=== PATIENT | female | born 1975 | race Caucasian/White ===

== ENCOUNTER 2017-12-30 19:27 | Emergency (ER) | payer OTHER ==
[~2017-12-30] VITALS: Ht 162.6 cm; Wt 81.6 kg
[~2017-12-30 19:27] MED LIST: ALLO100T21 PO; COZ50 PO; EPIN1KIT MR; METF500T4 PO; RANI300T35 PO; SIMV20TA6 PO; SYN.075 PO
[2017-12-30 19:48] VITALS: BP 128/65
--- NOTE | 2017-12-30 19:54 | NUR ---
to lobby, a/w rory puga noted
--- NOTE | 2017-12-30 21:45 | NUR ---
PATIENT AMBULATED TO ER BED 11.
--- NOTE | 2017-12-30 21:47 | NUR ---
PATIENT IS A 42 Y/O FEMALE WHO PRESENTS TO THE ED C/O ABD PAIN. PT STATES, "I HAVE BEEN GOING TO URGENT CARE AND I FEEL LIKE THE MEDICATION ISN'T WORKING." PT REPORTS 7/10 SHARP GENITAL PAIN THAT RADIATES TO THE BACK. PT DENIES CP, SOB REPORTS NAUSEA/VOMITING/DIARRHEA. PT AAOX4, RR EVEN/UNLABORED. PT REPOSITIONED FOR COMFORT, BED IN LOWEST POSITION. ER MD DR. STACY NOTIFIED. WILL CONTINUE TO MONITOR.
[2017-12-30] MEDS: KETOROLAC 60 MG/2 ML VIAL IM ONE (22:30)
[2017-12-30 22:43] VITALS: BP 119/72
--- NOTE | 2017-12-30 22:43 | NUR ---
Patient discharged with v/s stable. Written and verbal after care instructions given and explained. Patient alert, oriented and verbalized understanding of instructions. Ambulatory with steady gait. All questions addressed prior to discharge. ID band removed. Patient advised to follow up with PMD. Rx of NORCO 5MG-325MG given. Patient educated on indication of medication including possible reaction and side effects. Opportunity to ask questions provided and answered.
== END 2017-12-30 22:43 | disposition home or self-care (01) ==
LOC: MED 19:27
DX: R30.0 Dysuria (principal); R10.30 Lower abdominal pain, unspecified; E11.9 Type 2 diabetes mellitus without complications; I10 Essential (primary) hypertension; E03.9 Hypothyroidism, unspecified; Z79.899 Other long term (current) drug therapy; Z88.8 Allergy status to other drugs, medicaments and biological substances; Z87.442 Personal history of urinary calculi; Z91.018 Allergy to other foods
CPT/HCPCS: 81002; 81025; 96372; 99283; J1885

== ENCOUNTER 2019-03-10 04:20 | Emergency (ER) | payer OTHER ==
[~2019-03-10] VITALS: Ht 162.6 cm; Wt 131.5 kg
[~2019-03-10 04:20] MED LIST changes: +METF-988 PO; -METF500T4 PO
[2019-03-10 04:25] VITALS: BP 149/90
--- NOTE | 2019-03-10 04:25 | NUR ---
TO BED # 11 AMBULATORY , REPORT GIVEN TO AALIYAH LIMON
--- NOTE | 2019-03-10 04:43 | NUR ---
BIB SELF WITH C/O SHARP TO DULL RIGHT SIDE/FLANK PAIN. STATES PAIN WAS SO SEVERE THAT SHE THREW UP X1 BEFORE COMING IN. STATES SHE HAS HAD KIDNEY STONES IN THE PAST BUT THIS PAIN IS DIFFERENT AND WAS ACCOMPANIED BY BLOATING WHICH SHE HAS NOT HAD WITH PREVIOUS KIDNEY STONES. STATES SHE HAS CHRONIC UTI'S AND IS CURRENTLY TAKING A UTI OTC PAIN RELIEVER BUT DOES NOT KNOW IF SHE HAS A CURRENT UTI.
--- NOTE | 2019-03-10 04:57 | NUR ---
ERMD AT BEDSIDE
[2019-03-10] MEDS ORDERED: MORPHINE SULFATE 4 MG/ML SYR IVP ONE (05:00)
[2019-03-10] MEDS ORDERED: ONDANSETRON 4 MG/2 ML VIAL IVP ONE (05:00)
[2019-03-10] MEDS ORDERED: NACL 0.9% 1,000 ML IV ONE (05:00)
[2019-03-10 05:31] LABS: ALBUMIN 3.4 g/dL (3.4-5.0); ANION GAP 12.5 (8-16); CARBON DIOXIDE 26.4 mmol/L (21-32); POTASSIUM 3.9 mmol/L (3.5-5.1); TOTAL BILIRUBIN 0.6 mg/dL (0.0-1.0)
--- NOTE | 2019-03-10 05:51 | NUR ---
PT TAKEN TO CT.
[2019-03-10 05:54] LABS: BILIRUBIN,URINE NEGATIVE (NEGATIVE); BLOOD, URINE 2+ (NEGATIVE); COLOR,URINE YELLOW (YELLOW); LEUKOCYTE ESTERASE ,URINE 1+ (NEGATIVE); NITRITE, URINE NEGATIVE (NEGATIVE); UGLUCOSE 3+ (NEGATIVE)
--- NOTE | 2019-03-10 06:05 | NUR ---
PT RETURNED FROM CT.
[2019-03-10 06:09] LABS: APPEARANCE,URINE HAZY (CLEAR); RBC,URINE 0 /HPF (0-5)
[2019-03-10 06:10] LABS: WBC,URINE 80-100 /HPF (0-5); YEAST,URINE Rare /HPF (None Seen)
[2019-03-10] MEDS ORDERED: KETOROLAC 30 MG/ML VIAL IVP ONE (06:30)
[2019-03-10 06:44] LABS: BASOPHILS % (AUTO) 0.2 % (0.0-2.0); EOSINOPHILS # (AUTO) 0.1 K/uL (0-0.4); EOSINOPHILS % (AUTO) 0.4 % (0.0-4.0); HEMATOCRIT 38.6 % (36-48); HEMOGLOBIN 12.9 g/dL (12.0-16.0); LYMPHOCYTES # (AUTO) 1.2 K/uL (2.5-16.5); LYMPHOCYTES % (AUTO) 8.5 % (20.5-51.1); MEAN CORPUSCULAR HEMOGLOBIN 30 pg (27-31); MEAN CORPUSCULAR HGB CONC 34 g/dL (33-37); MEAN CORPUSCULAR VOLUME 88.6 fL (80-94); MONOCYTES # (AUTO) 0.6 K/uL (0.8-1.0); MONOCYTES % (AUTO) 4.2 % (1.7-9.3); NEUTROPHILS # (AUTO) 11.8 K/uL (1.8-7.7); NEUTROPHILS % (AUTO) 86.7 % (42.2-75.2); PLATELET COUNT (AUTO) 257 K/uL (140-450); RED BLOOD CELL COUNT(AUTO) 4.35 MIL/uL (4.20-5.40); RED CELL DISTRIBUTION WIDTH 12.8 % (11.6-13.7); WHITE BLOOD COUNT (AUTO) 13.6 K/uL (4.8-10.8)
[2019-03-10] MEDS ORDERED: cefTRIAXone 1,000 MG VIAL ONE (06:52)
--- NOTE | 2019-03-10 07:04 | NUR ---
REPORT GIVEN TO ASHLY TORRES.
--- NOTE | 2019-03-10 07:05 | NUR ---
RECEIVED PT FROM PM SHIFT. PT STATED PAIN RELIEVED. ABX IS STILLL RUNNING,SITE INTACT AND PATENT. INTRODUCED MYSELF TO PT, PT VITALS STABLE.
[2019-03-10 07:56] VITALS: BP 128/76
--- NOTE | 2019-03-10 07:56 | NUR ---
Patient discharged with v/s stable. Written and verbal after care instructions given and explained. Patient alert, oriented and verbalized understanding of instructions. Ambulatory with steady gait. All questions addressed prior to discharge. ID band removed. Patient advised to follow up with PMD. Rx of KEFLEX, ZOFRAN, NAPROSYN AND NORCO given. Patient educated on indication of medication including possible reaction and side effects. Opportunity to ask questions provided and answered.
== END 2019-03-10 07:56 | disposition home or self-care (01) ==
LOC: MED 04:20
DX: N20.1 Calculus of ureter (principal); R14.0 Abdominal distension (gaseous); E11.9 Type 2 diabetes mellitus without complications; I10 Essential (primary) hypertension; E03.9 Hypothyroidism, unspecified; Z79.84 Long term (current) use of oral hypoglycemic drugs; Z79.899 Other long term (current) drug therapy; Z88.8 Allergy status to other drugs, medicaments and biological substances
CPT/HCPCS: 36415; 74176; 80053; 81001; 81025; 83690; 85025; 87086; 96365; 96375; 99284; J0696; J1885; J2270; J2405; J7030

== ENCOUNTER 2019-03-18 16:08 | Emergency (ER) | payer OTHER ==
[~2019-03-18] VITALS: Ht 162.6 cm; Wt 92.7 kg
[2019-03-18 16:13] VITALS: BP 141/108
--- NOTE | 2019-03-18 16:19 | NUR ---
PT AMBULATED TO LOBBY AT THIS TIME.
--- NOTE | 2019-03-18 16:38 | NUR ---
PT TO ER BED 2
--- NOTE | 2019-03-18 16:40 | NUR ---
PT C/O KIDNEY STONE. SHE STATES SHE WAS DIAGNOSED WITH KIDNEY STONE ON 03/03 HERE. PT REPORTS PAIN IS UNBEARBLE. CONSTANT SHARP BURNING PAIN IN LT FLANK, SUPRABUPIC, AND VAGNINA THAT INCREASES WITH URINATION AND SITTING DOWN. MEDHX:HTN, DM, HYPOTHYROID RX:METFORMIN, INSULIN, . DENIES N/V/D; SKIN IS PINK/WARM/DRY; AAOX4 WITH EVEN AND STEADY GAIT; LUNGS CLEAR BL; HR EVEN AND REGULAR; PT DENIES ANY FEVER, CP, SOB, OR COUGH AT THIS TIME; PATIENT STATES PAIN OF 10/10 AT THIS TIME; VSS; PATIENT POSITIONED FOR COMFORT; HOB ELEVATED; BEDRAILS UP X2; BED DOWN. ER MD MADE AWARE OF PT STATUS.
[2019-03-18 17:17] LABS: BASOPHILS # (AUTO) 0.1 K/uL (0.00-0.22); BASOPHILS % (AUTO) 0.8 % (0.0-2.0); EOSINOPHILS # (AUTO) 0.1 K/uL (0-0.4); EOSINOPHILS % (AUTO) 1.1 % (0.0-4.0); HEMATOCRIT 36.9 % (36-48); HEMOGLOBIN 12.5 g/dL (12.0-16.0); LYMPHOCYTES # (AUTO) 1.3 K/uL (2.5-16.5); LYMPHOCYTES % (AUTO) 18.3 % (20.5-51.1); MEAN CORPUSCULAR HEMOGLOBIN 30 pg (27-31); MEAN CORPUSCULAR HGB CONC 34 g/dL (33-37); MEAN CORPUSCULAR VOLUME 87.8 fL (80-94); MONOCYTES # (AUTO) 0.4 K/uL (0.8-1.0); MONOCYTES % (AUTO) 5.3 % (1.7-9.3); NEUTROPHILS # (AUTO) 5.2 K/uL (1.8-7.7); NEUTROPHILS % (AUTO) 74.5 % (42.2-75.2); PLATELET COUNT (AUTO) 401 K/uL (140-450); RED CELL DISTRIBUTION WIDTH 12.8 % (11.6-13.7)
[2019-03-18 17:25] LABS: ANION GAP 11.2 (8-16); CARBON DIOXIDE 28.1 mmol/L (21-32); POTASSIUM 4.3 mmol/L (3.5-5.1)
[2019-03-18 17:30] LABS: ALBUMIN 3.2 g/dL (3.4-5.0); TOTAL BILIRUBIN 0.5 mg/dL (0.0-1.0)
[2019-03-18 17:50] LABS: APPEARANCE,URINE CLOUDY (CLEAR); BILIRUBIN,URINE 1+ (NEGATIVE); BLOOD, URINE 3+ (NEGATIVE); COLOR,URINE RED (YELLOW); LEUKOCYTE ESTERASE ,URINE 2+ (NEGATIVE); NITRITE, URINE NEGATIVE (NEGATIVE); PH,URINE 6.5 (5.0-9.0); UGLUCOSE 3+ (NEGATIVE)
[2019-03-18 18:09] LABS: RBC,URINE TOO NUMEROUS TO COUN /HPF (0-5); WBC,URINE 16-25 (MOD) /HPF (0-5)
[2019-03-18 19:15] VITALS: BP 138/89
--- NOTE | 2019-03-18 19:17 | NUR ---
Patient discharged with v/s stable. Written and verbal after care instructions given and explained. Patient alert, oriented and verbalized understanding of instructions. Ambulatory with to car. All questions addressed prior to discharge. ID band removed. Patient advised to follow up with PMD. Rx of percocet, pyridium, flomax and colace, ciprofloxacin given. Patient educated on indication of medication including possible reaction and side effects. Opportunity to ask questions provided and answered.
== END 2019-03-18 19:17 | disposition home or self-care (01) ==
LOC: MED 16:08
DX: N20.0 Calculus of kidney (principal); R31.9 Hematuria, unspecified; E11.9 Type 2 diabetes mellitus without complications; I10 Essential (primary) hypertension; E03.9 Hypothyroidism, unspecified; Z88.8 Allergy status to other drugs, medicaments and biological substances; Z79.84 Long term (current) use of oral hypoglycemic drugs; Z79.899 Other long term (current) drug therapy
CPT/HCPCS: 36415; 80053; 81001; 81025; 85025; 87086; 99284

== ENCOUNTER 2019-04-08 14:08 | Emergency (ER) | payer OTHER ==
[~2019-04-08] VITALS: Ht 160 cm; Wt 91.6 kg
[2019-04-08 14:13] VITALS: BP 142/96
--- NOTE | 2019-04-08 14:19 | NUR ---
PT AMBULATED TO BED 6
[2019-04-08] MEDS ORDERED: LIDOCAINE VISCOUS 2% 20 ML UDC PO ONE (15:20)
[2019-04-08 15:27] LABS: APPEARANCE,URINE HAZY (CLEAR); BILIRUBIN,URINE NEGATIVE (NEGATIVE); BLOOD, URINE 3+ (NEGATIVE); COLOR,URINE YELLOW (YELLOW); LEUKOCYTE ESTERASE ,URINE 2+ (NEGATIVE); NITRITE, URINE NEGATIVE (NEGATIVE); UGLUCOSE NEGATIVE (NEGATIVE)
[2019-04-08 15:35] LABS: BARBITURATE, URINE NEG. ng/ml (NEG <=200); BENZODIAZEPINE, URINE NEG. ng/mL (NEG <=200); CANNABINOID, URINE NEG. ng/mL (NEG <=50); COCAINE, URINE NEG. ng/mL (NEG <=300); OPIATE, URINE NEG. ng/mL (NEG <=2000); PHENCYCLIDINE SCREEN,URINE NEG. ng/mL (NEG <=25)
[2019-04-08 15:38] LABS: RBC,URINE TOO NUMEROUS TO COUN /HPF (0-5); WBC,URINE TOO MANY TO COUNT /HPF (0-5)
--- NOTE | 2019-04-08 15:59 | NUR ---
ASSISTED DR. CLARK FEMALE MDS MANAGER FOR PELVIC EXAM
[2019-04-08] MEDS ORDERED: hydrOXYzine HCL 25 MG TAB PO ONE (16:00)
[2019-04-08] MEDS ORDERED: FLUCONAZOLE 100 MG TAB PO ONE (16:00)
[2019-04-08] MEDS ORDERED: LORazepam 1 MG TAB PO ONE (16:00)
--- NOTE | 2019-04-08 16:01 | NUR ---
PT REPORTS VAGINAL PAIN X1 MONTH. PT REPORTS BURNING PAIN AFTER SHE URINATES OR SITS AT 10/10. + NAUSEA AND CHILLS. - VOMIT, DIARRHEA. MEDHX:KIDNEY STONES, DM, HYPOTHYROID, HLD, HTN, ENDOMETRIOSIS, CARPAL TUNNEL, PLANTAR FASCIATIS
[2019-04-08] MEDS ORDERED: LEVOFLOXACIN 500 MG TAB PO ONE (16:05)
[2019-04-08] MEDS ORDERED: FLUCONAZOLE 100 MG TAB PO SCH (16:15)
[2019-04-08 17:49] VITALS: BP 135/78
--- NOTE | 2019-04-08 17:49 | NUR ---
Patient discharged with v/s stable. Written and verbal after care instructions given and explained. Patient alert, oriented and verbalized understanding of instructions. Ambulatory with steady gait. All questions addressed prior to discharge. ID band removed. Patient advised to follow up with PMD. Rx of MONISTAT AND COLACE AND LEVAQUIN, ATARAX AND FIORICET AND LIDOCAINE VISCOUS given. Patient educated on indication of medication including possible reaction and side effects. Opportunity to ask questions provided and answered.
== END 2019-04-08 17:49 | disposition home or self-care (01) ==
LOC: MED 14:08
DX: B37.3 Candidiasis of vulva and vagina (principal); N30.90 Cystitis, unspecified without hematuria; E11.9 Type 2 diabetes mellitus without complications; I10 Essential (primary) hypertension; E03.9 Hypothyroidism, unspecified; E78.5 Hyperlipidemia, unspecified; Z79.84 Long term (current) use of oral hypoglycemic drugs; Z91.040 Latex allergy status; Z88.8 Allergy status to other drugs, medicaments and biological substances; Z87.442 Personal history of urinary calculi
CPT/HCPCS: 80305; 81001; 81025; 87086; 99284

== ENCOUNTER 2019-04-14 19:58 | Emergency (ER) | payer OTHER ==
[~2019-04-14] VITALS: Ht 162.6 cm; Wt 91.6 kg
[2019-04-14 20:05] VITALS: BP 155/90
--- NOTE | 2019-04-14 20:05 | NUR ---
PT TAKEN TO BED 2
--- NOTE | 2019-04-14 20:07 | NUR ---
PATIENT PRESENTS TO ED WITH C/O URINARY BURNING FOR APPROX 1 MONTH. PT DENIES NAUSEA, VOMITING OR FEVER. AFEBRILE AT THIS TIME. PATIENT STATES PAIN OF 6/10 AT THIS TIME; VSS; POSITIONED FOR COMFORT. BEDRAILS UP X1; BED DOWN. PENDING EVALUATION.
--- NOTE | 2019-04-14 20:10 | NUR ---
PA YESENIA WITH PT
[2019-04-14 20:16] VITALS: BP 145/91
[2019-04-14] MEDS ORDERED: KETOROLAC 30 MG/ML VIAL IM ONE (20:30)
[2019-04-14 20:54] LABS: APPEARANCE,URINE SL CLOUDY (CLEAR); BILIRUBIN,URINE NEGATIVE (NEGATIVE); BLOOD, URINE 3+ (NEGATIVE); COLOR,URINE YELLOW (YELLOW); LEUKOCYTE ESTERASE ,URINE 2+ (NEGATIVE); NITRITE, URINE NEGATIVE (NEGATIVE); UGLUCOSE NEGATIVE (NEGATIVE)
--- NOTE | 2019-04-14 21:10 | NUR ---
PELVIC EXAM PERFORMED BY CARMEN PATTERSON. SURFBOARD MAKER: ASHLY CARRENO PRESENT AT ALL TIMES. PT TOLERATED PROCEDURE WELL.
[2019-04-14 21:11] LABS: RBC,URINE TOO NUMEROUS TO COUN /HPF (0-5); WBC,URINE TOO MANY TO COUNT /HPF (0-5); YEAST,URINE Moderate /HPF (None Seen)
--- NOTE | 2019-04-14 21:15 | NUR ---
REPORT GIVEN TO ASHLY MARSHALL. TRANSFER OF CARE AT THIS TIME.
--- NOTE | 2019-04-14 21:32 | NUR ---
Patient discharged with v/s stable. Written and verbal after care instructions given and explained. Patient alert, oriented and verbalized understanding of instructions. Ambulatory with steady gait. All questions addressed prior to discharge. ID band removed. Patient advised to follow up with PMD. Rx of Nitrofurantoin and Diflucan given. Patient educated on indication of medication including possible reaction and side effects. Opportunity to ask questions provided and answered.
[2019-04-20 18:31] LABS: CHLAMYDIA TRACHOMATIS AMP DNA NEGATIVE (NEGATIVE)
== END 2019-04-14 21:32 | disposition home or self-care (01) ==
LOC: MED 19:58
DX: N39.0 Urinary tract infection, site not specified (principal); B37.3 Candidiasis of vulva and vagina; E11.9 Type 2 diabetes mellitus without complications; I10 Essential (primary) hypertension; Z79.84 Long term (current) use of oral hypoglycemic drugs; Z79.899 Other long term (current) drug therapy; Z91.040 Latex allergy status; Z88.8 Allergy status to other drugs, medicaments and biological substances
CPT/HCPCS: 36415; 81001; 81025; 87086; 96372; 99283; J1885; 87491

== ENCOUNTER 2020-05-11 18:56 | Emergency (ER) | payer OTHER ==
[~2020-05-11] VITALS: Ht 167.6 cm; Wt 97.1 kg
[~2020-05-11 18:56] MED LIST changes: -COZ50 PO; +LOSA50TA57 PO; +SIMV-30 PO; -SIMV20TA6 PO
[2020-05-11 19:22] VITALS: BP 134/80
[2020-05-11] MEDS ORDERED: traMADol 50 MG TAB PO STA (20:22)
[2020-05-11 21:11] VITALS: BP 134/80
== END 2020-05-11 21:12 | disposition home or self-care (01) ==
LOC: MED 18:56
DX: G56.01 Carpal tunnel syndrome, right upper limb (principal); E11.9 Type 2 diabetes mellitus without complications; I10 Essential (primary) hypertension; I51.89 Other ill-defined heart diseases; Z91.040 Latex allergy status; Z88.8 Allergy status to other drugs, medicaments and biological substances; Z79.899 Other long term (current) drug therapy
CPT/HCPCS: 81025; 99283

== ENCOUNTER 2021-03-29 21:04 | Observation (INO) | payer OTHER ==
[~2021-03-29] VITALS: Ht 162.6 cm; Wt 97.5 kg
[2021-03-29 21:07] VITALS: BP 149/87
--- NOTE | 2021-03-29 21:07 | NUR ---
TO BED AMBULATORY
--- NOTE | 2021-03-29 21:25 | NUR ---
PATIENT 46 Y/O FEMALE BIB SELF FOR C/O L SIDED RIB/ BREAST PAIN S/P GARDENING X 2 HOURS AGO. PER PATIENT PAIN WAS SHARP AND STABBING. PAIENT STATES PAIN WAS INITALLY 10/10 BUT OVERTIME PAIN REDUCED AND IS INTERMITTENT. PATIENT STATES PAIN IS CURRENTLY 0/10. PATIENT DENIES SOB, COUGH. PATIENT STATES PAIN IS RELIVED BY REST AND "BREATHING DEEPLY." MEDHX: HTN, DM TYPE II, HEART MURMUR ( A CHILD), ENDOMETRIOSIS, HYPERLIPIDEMIA ALLERGIES: LATEX, NUTS, CINNAMON.
--- NOTE | 2021-03-29 22:24 | NUR ---
LAB AT BEDSIDE, DRAWING BLOOD.
--- NOTE | 2021-03-29 22:28 | NUR ---
XRAY AT BEDSIDE.
[2021-03-29 22:36] LABS: BASOPHILS # (AUTO) 0.1 K/uL (0.00-0.22); BASOPHILS % (AUTO) 0.6 % (0.0-2.0); EOSINOPHILS # (AUTO) 0.1 K/uL (0-0.4); EOSINOPHILS % (AUTO) 1.3 % (0.0-4.0); HEMATOCRIT 41.1 % (36-48); HEMOGLOBIN 13.6 g/dL (12.0-16.0); LYMPHOCYTES # (AUTO) 2.5 K/uL (2.5-16.5); LYMPHOCYTES % (AUTO) 29.5 % (20.5-51.1); MEAN CORPUSCULAR HEMOGLOBIN 30 pg (27-31); MEAN CORPUSCULAR HGB CONC 33 g/dL (33-37); MEAN CORPUSCULAR VOLUME 91.2 fL (80-94); MONOCYTES # (AUTO) 0.4 K/uL (0.8-1.0); MONOCYTES % (AUTO) 4.8 % (1.7-9.3); NEUTROPHILS # (AUTO) 5.4 K/uL (1.8-7.7); NEUTROPHILS % (AUTO) 63.8 % (42.2-75.2); PLATELET COUNT (AUTO) 294 K/uL (140-450); WHITE BLOOD COUNT (AUTO) 8.4 K/uL (4.8-10.8)
[2021-03-29 22:50] LABS: ALBUMIN 3.6 g/dL (3.4-5.0); ANION GAP 10.4 (8-16); CARBON DIOXIDE 28.3 mmol/L (21-32); CREATININE 0.9 mg/dL (0.6-1.3); POTASSIUM 3.7 mmol/L (3.5-5.1); TOTAL BILIRUBIN 0.3 mg/dL (0.0-1.0)
[2021-03-29] MEDS ORDERED: ASPIRIN 81 MG TAB.CHEW PO ONE (23:20)
[2021-03-29] MEDS ORDERED: ACETAMINOPHEN 325 MG TAB PO ONE (23:20)
[2021-03-29] MEDS ORDERED: HYDROcodone/APAP 5/325 MG 1 TAB TAB PO PRN (23:30)
[2021-03-29] MEDS ORDERED: ZOLPIDEM 5 MG TAB PO PRN (23:30)
[2021-03-29] MEDS ORDERED: DEXTROSE 50% 50 ML SYR IVP PRN (23:30)
[2021-03-29] MEDS ORDERED: MORPHINE SULFATE 2 MG/ML SYR IVP PRN (23:30)
[2021-03-29] MEDS ORDERED: NITROGLYCERIN 0.4 MG TAB SL PRN (23:30)
[2021-03-29] MEDS ORDERED: KETOROLAC 30 MG/ML VIAL IVP PRN (23:30)
[2021-03-29] MEDS ORDERED: ONDANSETRON 4 MG/2 ML VIAL IVP PRN (23:30)
[2021-03-29] MEDS ORDERED: LORazepam 2 MG/ML VIAL IVP PRN (23:30)
[2021-03-29] MEDS ORDERED: ACETAMINOPHEN 325 MG TAB PO PRN (23:30)
[2021-03-29] MEDS ORDERED: GABAPENTIN 300 MG CAP PO ONE (23:40)
--- NOTE | 2021-03-30 00:20 | NUR ---
IV PLACED IN R HAND 22G. IV SITE PATIENT WITH RETURN NOTED.
[2021-03-30] MEDS ORDERED: METF500T PO (00:23)
[2021-03-30] MEDS ORDERED: SYN.075 PO (00:23)
[2021-03-30] MEDS ORDERED: PROG100C4 PO (00:23)
[2021-03-30] MEDS ORDERED: LOSA100T1 PO (00:23)
[2021-03-30] MEDS ORDERED: ALLO100T21 PO (00:23)
[2021-03-30] MEDS ORDERED: HUM7525 SUBQ (00:23)
[2021-03-30] MEDS ORDERED: CANA300T PO (00:23)
[2021-03-30] MEDS ORDERED: GABA100C PO (00:23)
[2021-03-30 00:25] LABS: CREATINE KINASE MB 0.4 ng/mL (0-3.6)
[2021-03-30] MEDS ORDERED: GABAPENTIN 100 MG CAP ONE (00:31)
--- NOTE | 2021-03-30 00:57 | NUR ---
Patient appears to be resting comfortably in bed. Vital Signs within normal limits. Respirations even and unlabored.
--- NOTE | 2021-03-30 02:58 | NUR ---
Patient had c/o 4/10 umblilical pain and insomina. PRN medications given. NADR,g patient remains on cardiac monitor technician. VSS. Bed is locked and in lowest position.
--- NOTE | 2021-03-30 04:16 | NUR ---
Patient appears to be resting comfortably in bed. Vital Signs within normal limits. Respirations even and unlabored.
--- NOTE | 2021-03-30 05:47 | NUR ---
Patient appears to be resting comfortably in bed. Vital Signs within normal limits. Respirations even and unlabored.
--- NOTE | 2021-03-30 06:56 | NUR ---
Patient appears to be resting comfortably in bed. Vital Signs within normal limits. Respirations even and unlabored.
--- NOTE | 2021-03-30 07:18 | NUR ---
REPORT GIVEN TO AVINASH LIMON, TRANSFER OF CARE.
[2021-03-30 07:26] LABS: BASOPHILS % (AUTO) 0.6 % (0.0-2.0); EOSINOPHILS # (AUTO) 0.1 K/uL (0-0.4); EOSINOPHILS % (AUTO) 1.6 % (0.0-4.0); HEMATOCRIT 40.8 % (36-48); HEMOGLOBIN 13.8 g/dL (12.0-16.0); LYMPHOCYTES # (AUTO) 2.8 K/uL (2.5-16.5); LYMPHOCYTES % (AUTO) 35.9 % (20.5-51.1); MEAN CORPUSCULAR HEMOGLOBIN 31 pg (27-31); MEAN CORPUSCULAR HGB CONC 34 g/dL (33-37); MONOCYTES # (AUTO) 0.5 K/uL (0.8-1.0); NEUTROPHILS # (AUTO) 4.4 K/uL (1.8-7.7); NEUTROPHILS % (AUTO) 55.9 % (42.2-75.2); PLATELET COUNT (AUTO) 265 K/uL (140-450); RED BLOOD CELL COUNT(AUTO) 4.53 MIL/uL (4.20-5.40); RED CELL DISTRIBUTION WIDTH 12.9 % (11.6-13.7); WHITE BLOOD COUNT (AUTO) 7.8 K/uL (4.8-10.8)
[2021-03-30 07:39] LABS: ALBUMIN 3.3 g/dL (3.4-5.0); ANION GAP 12.5 (8-16); CARBON DIOXIDE 26.2 mmol/L (21-32); CREATININE 0.8 mg/dL (0.6-1.3); MAGNESIUM 1.6 mg/dL (1.8-2.4); POTASSIUM 3.7 mmol/L (3.5-5.1); TOTAL BILIRUBIN 0.3 mg/dL (0.0-1.0)
[2021-03-30] MEDS: BLOOD GLUCOSE MONITORING 1 DEV DEV FS SCH ×3 (07:47→16:30)
[2021-03-30] MEDS: INSULIN LISPRO SLIDING SCALE 100 UNITS/ML VIAL SUBQ PRN ×2 (07:49→11:35)
--- NOTE | 2021-03-30 07:59 | NUR ---
PT A&OX3 SPEAKING IN FULL SENTENCES STATES UNDERSTANDING PLAN OF CARE, LAYING CONFORTABLY IN BED. NO ACUTE NEEDS AT THIS TIME,
[2021-03-30 08:30] VITALS: BP 141/94
--- NOTE | 2021-03-30 08:31 | NUR ---
PATIENT HAS BEEN SCREENED AND CATEGORIZED MODERATE NUTRITION RISK. PATIENT WILL BE SEEN WITHIN 3-5 DAYS OF ADMISSION. 03/31/21 04/02/[address]
--- NOTE | 2021-03-30 08:54 | NUR ---
RECEIVED PATIENT FORM ER AT 0830. PATIENT IS ALERT AND AWAKE X4 . RESPIRATION IS EVEN AND UNLABORED AT ROOM AIR.IV HEP LOCK 20G ON RIGHT HAND NOTED. ON SIGN OF INFILTRATION NOTED. VITAL SIGN TAKEN. MRSA SWAB DONE AND SENT TO LAB. SCHEDULE MEDICATION ADMINISTERED PER MD ORDERED AND PATIENT TOLERATED WELL. WELL CONTINUE TO MONITOR PATIENT
[2021-03-30] MEDS ORDERED: METOPROLOL 25 MG TAB PO SCH (09:00)
[2021-03-30] MEDS ORDERED: ENOXAPARIN 40 MG/0.4 ML SYR SUBQ SCH (09:00)
[2021-03-30] MEDS ORDERED: ASPIRIN 81 MG TAB.CHEW PO SCH (09:00)
[2021-03-30] MEDS ORDERED: MAG SULF 2000 MG/WATER PREMIX 50 ML IV SCH (09:00)
--- NOTE | 2021-03-30 09:00 | NUR ---
SCHEDULE MEDICATION GIVEN PER MD ORDERED. PATIENT TOLERATED WELL.GLUCOSE LEVEL 73 NO ACTION TAKEN. MD NOTIFIED. WILL CONTINUE TO MONITOR PATIENT.
--- NOTE | 2021-03-30 10:34 | NUR ---
PATIENT IS STARTED ON MAGNESIUM 2000MG 50ML FOR A LEVEL OF MAG 1.3.PER MD ORDERED . PATIENT TOLERATED WELL
--- NOTE | 2021-03-30 10:34 | NUR ---
PT WAS GIVEN MAGNESIUM RIDER 2GM NOW FOR MG LEVEL OF 1.6.
--- NOTE | 2021-03-30 10:47 | NUR ---
DR. CARMONA TALKING TO PT NOW AND ASKING THE PT IF SHE WANTS A WAGE CONCILIATOR CONSULT BUT PT REFUSED AND SAID THAT SHE WILL JUST GO HOME.
--- NOTE | 2021-03-30 11:20 | NUR ---
ECHOCARDIOGRAM IS BEING DONE TO PT NOW.
--- NOTE | 2021-03-30 11:39 | NUR ---
2 UNIT INSULIN GIVEN FOR BLOOD GLUCOSE OF 154 PER SLIDING SCALE
--- NOTE | 2021-03-30 11:53 | NUR ---
ECHOCARDIOGRAM IS FINISHED NOW.
[2021-03-30 12:00] VITALS: BP 136/80
--- NOTE | 2021-03-30 15:30 | NUR ---
DISCHARGE PATIENT TO HOME ACCOMPANIED BY BROTHER. REMOVED IV LINE. DISCHARGE INSTRUCTION GIVEN TO AND PATIENT VERBALIZED UNDERSTANDING. PATIENT IS STABLE AT THIS TIME.
[2021-03-30] MEDS ORDERED: SIMVASTATIN 20 MG TAB PO SCH (21:00)
== END 2021-03-30 15:30 | disposition home or self-care (01) ==
LOC: MED 21:04 → MTU 23:34
PROVIDERS: ADMIT Internal Medicine; ATTEND Internal Medicine
DX: R07.89 Other chest pain (principal); Z20.822 Contact with and (suspected) exposure to COVID-19; I10 Essential (primary) hypertension; E11.9 Type 2 diabetes mellitus without complications; E66.9 Obesity, unspecified; E03.9 Hypothyroidism, unspecified; R01.1 Cardiac murmur, unspecified; Z82.49 Family history of ischemic heart disease and other diseases of the circulatory system; Z90.49 Acquired absence of other specified parts of digestive tract; Z79.84 Long term (current) use of oral hypoglycemic drugs; Z79.899 Other long term (current) drug therapy; Z91.040 Latex allergy status; Z88.8 Allergy status to other drugs, medicaments and biological substances; Z68.36 Body mass index [BMI] 36.0-36.9, adult
CPT/HCPCS: 36415; 71045; 80053; 82550; 82553; 82948; 83735; 84484; 85025; 87081; 87426; 93005; 93307; 96365; 96366; 96372; 96375; 99285; G0378; J1650; J1885; J3475

== ENCOUNTER 2022-09-03 15:24 | Emergency (ER) | payer OTHER ==
[~2022-09-03] VITALS: Ht 162.6 cm; Wt 95.3 kg
[~2022-09-03 15:24] MED LIST changes: +CANA300T PO; +GABA100C PO; +HUM7525 SUBQ; +LOSA100T1 PO; -LOSA50TA57 PO; +METF-1243 PO; +METF-346 PO; -METF-988 PO; +PROG100C4 PO
[2022-09-03 15:25] VITALS: BP 171/95
[2022-09-03] MEDS ORDERED: KETOROLAC 60 MG/2 ML VIAL IM ONE (15:50)
[2022-09-03] MEDS ORDERED: ONDANSETRON 4 MG ODT PO ONE (15:50)
--- NOTE | 2022-09-03 15:51 | NUR ---
47/F WALKED IN C/O DIZZINESS, NAUSEA AND BLURRED VISION ACCOMPANIED BY NECK PAIN AND ABD PAIN ONSET 08/21/22. DENIES TRAUMA OR INJURY. AMBULATORY, EQUAL ROLLER SKATER STRENGTH, NO FACIAL DROOP OR SLURRED SPEECH. URINE COLLECTED pmh: htn, dm2, thyroid disease, endometriosis, hld allergy: tree nuts, cinnamon, latex, aripiprazole
[2022-09-03 15:53] VITALS: BP 168/89
[2022-09-03] MEDS ORDERED: ONDA8TAB87 PO (16:07)
[2022-09-03] MEDS ORDERED: ACET-8386 PO (16:07)
[2022-09-03] MEDS ORDERED: IBUP-2213 PO (16:07)
--- NOTE | 2022-09-03 16:20 | NUR ---
Patient discharged with v/s stable. Written and verbal after care instructions given and explained. Patient verbalized understanding. Ambulatory with steady gait. All questions addressed prior to discharge. Advised to follow up with PMD.
== END 2022-09-03 16:20 | disposition home or self-care (01) ==
LOC: MED 15:24
DX: R42 Dizziness and giddiness (principal); R11.0 Nausea; M54.2 Cervicalgia; E11.9 Type 2 diabetes mellitus without complications; I10 Essential (primary) hypertension; Z88.8 Allergy status to other drugs, medicaments and biological substances; Z91.040 Latex allergy status; Z79.84 Long term (current) use of oral hypoglycemic drugs; Z79.899 Other long term (current) drug therapy; Z90.49 Acquired absence of other specified parts of digestive tract; Z98.890 Other specified postprocedural states
CPT/HCPCS: 81002; 81025; 96372; 99283; J1885; Q0162

== ENCOUNTER 2023-02-27 14:59 | Emergency (ER) | payer OTHER ==
[~2023-02-27] VITALS: Ht 157.5 cm; Wt 85.7 kg
[~2023-02-27 14:59] MED LIST changes: +ACET-8905 PO; +IBUP-2213 PO; -LOSA100T1 PO; +LOSA100T2 PO; +ONDA8TAB87 PO
[2023-02-27 15:05] VITALS: BP 168/93
[2023-02-27] MEDS ORDERED: PRED20TA5 PO (17:03)
[2023-02-27] MEDS ORDERED: AMOX-1230 PO (17:03)
[2023-02-27] MEDS ORDERED: CETI10TA81 PO (17:04)
--- NOTE | 2023-02-27 17:08 | NUR ---
Patient discharged with v/s stable. Written and verbal after care instructions given and explained. Patient alert, oriented and verbalized understanding of instructions. Ambulatory with steady gait. All questions addressed prior to discharge. ID band removed. Patient advised to follow up with PMD. Rx of AUGMENTIN, ZYRTEC, PREDNISONE given. Patient educated on indication of medication including possible reaction and side effects. Opportunity to ask questions provided and answered.
== END 2023-02-27 17:09 | disposition home or self-care (01) ==
LOC: MED 14:59
DX: K04.7 Periapical abscess without sinus (principal); E11.9 Type 2 diabetes mellitus without complications; I10 Essential (primary) hypertension; Z86.39 Personal history of other endocrine, nutritional and metabolic disease; Z79.899 Other long term (current) drug therapy; Z79.1 Long term (current) use of non-steroidal anti-inflammatories (NSAID); Z79.891 Long term (current) use of opiate analgesic; Z79.4 Long term (current) use of insulin; Z88.8 Allergy status to other drugs, medicaments and biological substances; Z91.040 Latex allergy status; Z91.018 Allergy to other foods
CPT/HCPCS: 99283

== ENCOUNTER 2023-06-08 12:43 | Emergency (ER) | payer OTHER ==
[~2023-06-08] VITALS: Ht 170.2 cm; Wt 104.3 kg
[~2023-06-08 12:43] MED LIST changes: +AMOX-1230 PO; +CETI10TA81 PO; +PRED20TA5 PO
[2023-06-08 13:37] VITALS: BP 138/94; PULSE 84; RESP 18; TEMP 98; O2SAT 98
[2023-06-08 14:04] LABS: BASOPHILS # (AUTO) 0.1 K/uL (0.00-0.22); BASOPHILS % (AUTO) 0.8 % (0.0-2.0); EOSINOPHILS # (AUTO) 0.1 K/uL (0-0.4); EOSINOPHILS % (AUTO) 1.1 % (0.0-4.0); HEMATOCRIT 43.9 % (36-48); HEMOGLOBIN 14.8 g/dL (12.0-16.0); LYMPHOCYTES # (AUTO) 2.2 K/uL (2.5-16.5); MEAN CORPUSCULAR HEMOGLOBIN 31 pg (27-31); MEAN CORPUSCULAR HGB CONC 34 g/dL (33-37); MEAN CORPUSCULAR VOLUME 92.3 fL (80-94); MONOCYTES # (AUTO) 0.5 K/uL (0.8-1.0); MONOCYTES % (AUTO) 5.7 % (1.7-9.3); NEUTROPHILS # (AUTO) 5.4 K/uL (1.8-7.7); NEUTROPHILS % (AUTO) 65.4 % (42.2-75.2); PLATELET COUNT (AUTO) 353 K/uL (140-450); RED BLOOD CELL COUNT(AUTO) 4.76 MIL/uL (4.20-5.40); RED CELL DISTRIBUTION WIDTH 12.6 % (11.6-13.7); WHITE BLOOD COUNT (AUTO) 8.2 K/uL (4.8-10.8)
[2023-06-08 14:29] LABS: ALBUMIN 3.7 g/dL (3.4-5.0); ANION GAP 11.4 (8-16); CARBON DIOXIDE 29.7 mmol/L (21-32); CREATININE 0.9 mg/dL (0.6-1.3); FREE T4 (FREE THYROXINE) 1.02 ng/dL (0.76-1.46); POTASSIUM 4.1 mmol/L (3.5-5.1); THYROID STIMULATING HORMONE 1.71 uIU/mL (0.34-3.74); TOTAL BILIRUBIN 0.3 mg/dL (0.0-1.0)
[2023-06-08] MEDS ORDERED: LORA-476 PO (17:38)
[2023-06-08 18:51] VITALS: BP 135/98; PULSE 81; RESP 18; TEMP 97.9; O2SAT 97
--- NOTE | 2023-06-08 18:51 | NUR ---
Patient discharged with v/s stable. Written and verbal after care instructions given and explained. Dr. Yeager feels abd pain is from pt's anxiety. Rx med for anxiety prescribed. Patient alert, oriented and verbalized understanding of instructions. Ambulatory with steady gait. All questions addressed prior to discharge. ID band removed. Patient advised to follow up with PMD. Rx of ATIVAN given. Patient educated on indication of medication including possible reaction and side effects. Opportunity to ask questions provided and answered. Pt to f/u with PMD/psychiatrist in 3 to 4 days. Pt instructed to return if condition worsens.
== END 2023-06-08 18:51 | disposition home or self-care (01) ==
LOC: MED 12:43
DX: F41.9 Anxiety disorder, unspecified (principal); N61.0 Mastitis without abscess; D25.9 Leiomyoma of uterus, unspecified; E03.9 Hypothyroidism, unspecified; I11.0 Hypertensive heart disease with heart failure; E11.9 Type 2 diabetes mellitus without complications; Z91.040 Latex allergy status; Z79.899 Other long term (current) drug therapy; Z79.4 Long term (current) use of insulin
CPT/HCPCS: 36415; 76641; 76830; 80053; 84439; 84443; 84479; 85025; 99284; Q0092

== ENCOUNTER 2024-02-06 09:42 | Emergency (ER) | payer OTHER ==
[~2024-02-06] VITALS: Ht 162.6 cm; Wt 93.0 kg
[~2024-02-06 09:42] MED LIST changes: +LORA-476 PO; +LOSA-272 PO; -LOSA100T2 PO
[2024-02-06 09:43] VITALS: BP 161/99; PULSE 79; RESP 19; TEMP 98.5; O2SAT 100
[2024-02-06] MEDS ORDERED: MEDR10TA PO (10:04)
[2024-02-06 11:35] VITALS: BP 149/74; PULSE 82; RESP 18; TEMP 36.94740; O2SAT 98
== END 2024-02-06 11:35 | disposition home or self-care (01) ==
LOC: MED 09:42
DX: N93.8 Other specified abnormal uterine and vaginal bleeding (principal); I11.9 Hypertensive heart disease without heart failure; E11.9 Type 2 diabetes mellitus without complications; E03.9 Hypothyroidism, unspecified; Z79.4 Long term (current) use of insulin; Z79.899 Other long term (current) drug therapy; Z88.8 Allergy status to other drugs, medicaments and biological substances
CPT/HCPCS: 81002; 81025; 99283